=== PATIENT | male | born 1990 ===

== ENCOUNTER 2018-03-26 19:39 | Emergency (ER) | payer MEDICAID ==
[2018-03-26 19:49] VITALS: PULSE 90
--- NOTE | 2018-03-26 20:31 | C.PDOC ---
History Of Present Illness 27 year old male presents to the ED for evaluation of symptoms of anxiety. Patient states he has been compliant with his anxiety medication and has not had an anxiety attack in a long time. Patient states symptoms have improved upon ED arrival and denies chest pain, shortness of breath, palpitations. Time Seen by Provider: 03/26/18 19:57 Chief Complaint (Nursing): Anxiety History Per: Patient History/Exam Limitations: no limitations Onset/Duration Of Symptoms: Hrs Current Symptoms Are (Timing): Better Suicide/Self Injury Attempted (Context): None Associated Symptoms: denies: Suicidal Thoughts, Suicidal Plan Involuntary Hold By: None Recent travel outside of the [place]: No Additional History Per: Patient Past Medical History Reviewed: Historical Data, Nursing Documentation, Vital Signs Vital Signs: Last Vital Signs Temp 98.4 F 03/26/18 20:39 Pulse 90 03/26/18 20:39 Resp 16 03/26/18 20:39 BP 128/82 03/26/18 20:39 Pulse Ox 95 03/27/18 02:14 - Medical History PMH: Anxiety Denies: Diabetes, Hepatitis, HIV, HTN, Chronic Kidney Disease, Seizures, Sexually Transmitted Disease Surgical History: No Surg Hx Family History: States: Unknown Family Hx - Social History Hx Alcohol Use: Yes Hx Substance Use: No Review Of Systems Cardiovascular: Negative for: Chest Pain, Palpitations Respiratory: Negative for: Shortness of Breath Psych: Positive for: Anxiety Physical Exam - Physical Exam Appears: Non-toxic, No Acute Distress Skin: Normal Color, Warm, Dry Head: Atraumatic, Normacephalic Eye(s): bilateral: Normal Inspection Oral Mucosa: Moist Neck: Supple Chest: Symmetrical, No Deformity, No Tenderness Cardiovascular: Rhythm Regular, No Murmur Respiratory: Normal Breath Sounds, No Rales, No Rhonchi, No Wheezing Extremity: Normal ROM, Capillary Refill (less than 2 seconds ) Neurological/Psych: Oriented x3, Normal Speech, Normal Cognition ED Course And Treatment O2 Sat by Pulse Oximetry: 95 (on RA) Pulse Ox Interpretation: Normal Progress Note: On re-examination, patient has stable vitals, is resting comfortably, showing no signs of distress and is stable for discharge. Patient is advised to f/u with his PMD within 1-2 days for further evaluation and/or return to the ED if symptoms persist or worsen. Disposition Counseled Patient/Family Regarding: Diagnosis, Need For Followup, Rx Given - Disposition Disposition: HOME/ ROUTINE Disposition Time: 20:29 Condition: STABLE Additional Instructions: Please follow up with PMD Continue current meds Return to ER if worse Instructions: Anxiety, Adult (DC) Forms: [facility] (K[place]z) - Clinical Impression Clinical Impression: Anxiety - PA / [employer] / Resident Statement MD/DO has reviewed & agrees with the documentation as recorded. - Scribe Statement The provider has reviewed the documentation as recorded by the Scribe (Betzy Mejia) All medical record entries made by the Scribe were at my direction and personally dictated by me. I have reviewed the chart and agree that the record accurately reflects my personal performance of the history, physical exam, medical decision making, and the department course for this patient. I have also personally directed, reviewed, and agree with the discharge instructions and disposition.
[2018-03-26 20:40] VITALS: BP 128/82; RESP 16; TEMP 98.4
[2018-03-27 01:27] VITALS: O2SAT 95
== END 2018-03-26 20:41 | disposition home or self-care (01) ==
LOC: C.ER 19:39
DX: F41.9 Anxiety disorder, unspecified (principal)